=== PATIENT | male | born 1995 ===

== ENCOUNTER 2021-01-20 17:31 | Emergency (ER) | payer OTHER ==
[~2021-01-20] VITALS: Ht 172.7 cm; Wt 65.0 kg
[2021-01-20 19:28] LABS: BASOPHILS % (AUTO) 0 % (0-1); EOSINOPHILS % (AUTO) 0 % (1-7); LYMPHOCYTES % (AUTO) 11 % (22-44); MEAN CORPUSCULAR HEMOGLOBIN 32.4 pg (27.5-34.5); MEAN CORPUSCULAR HGB CONC 35.7 g/dL (33.2-36.2); MEAN PLATELET VOLUME 9.1 fL (7.4-10.4); MONOCYTES % (AUTO) 5 % (2-9); NEUTROPHILS % (AUTO) 83 % (42-75); PLATELET COUNT 194 x10^3/uL (130-400); RED BLOOD COUNT 5.46 x10^6/uL (4.38-5.82); RED CELL DISTRIBUTION WIDTH 12.1 % (9.4-14.8)
[2021-01-20 19:31] LABS: ALBUMIN 4.6 g/dL (3.4-5.0); CALCIUM 9.3 mg/dL (8.5-10.1)
[2021-01-20 19:35] LABS: ALANINE AMINOTRANSFERASE 23 U/L (12-78); ALKALINE PHOSPHATASE 62 U/L (45-117); BILIRUBIN,TOTAL 1.9 mg/dL (0.2-1.0); CREATININE 0.95 mg/dL (0.7-1.3); TOTAL PROTEIN 8.4 g/dL (6.4-8.2)
[2021-01-20 19:38] LABS: ANION GAP 7 mmol/L (5-15); CHLORIDE 104 mmol/L (98-107)
--- NOTE | 2021-01-20 20:15 | NUR ---
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
[2021-01-20] MEDS ORDERED: ONDANSETRON 2MG/ML, 2ML ONE ×2 (20:46→23:15)
[2021-01-20] MEDS ORDERED: MORPHINE SULFATE 4 MG/ML, 1ML ONE ×2 (20:46→23:15)
[2021-01-20] MEDS ORDERED: MORPHINE SULFATE 4 MG/ML, 1ML IVPush ONE ×2 (21:00→23:00)
[2021-01-20] MEDS ORDERED: ONDANSETRON 2MG/ML, 2ML IVPush ONE ×2 (21:00→23:00)
[2021-01-20] MEDS ORDERED: OMNIPAQUE 350 MG/ML, 100ML BOTTLE ONE (21:42)
[2021-01-20 22:42] LABS: MICROSCOPIC AUTO
[2021-01-20] MEDS ORDERED: PLEASE ENTER ALLERGIES MC SCH (23:00)
--- NOTE | 2021-01-20 23:20 | NUR ---
Pt given additional pain and nausea medications. Will be discharged with responsible ride home shortly.
--- NOTE | 2021-01-21 00:07 | NUR ---
Patient/Caregiver given discharge instructions and they have confirmed that they understand the instructions. Patient ambulatory with steady gait. NAD, all questions answered appropriately, denies additional needs at this time. No personal belongings left in room after discharge.
--- NOTE | 2021-01-21 00:07 | NUR ---
Pt alert, oriented, vitals stable. Pt safe for discharge. Pts girlfriend will be here in 20 minutes.
== END 2021-01-21 00:33 | disposition home or self-care (01) ==
LOC: ED 20:49
DX: K29.20 Alcoholic gastritis without bleeding (principal); F10.10 Alcohol abuse, uncomplicated; F12.10 Cannabis abuse, uncomplicated; F17.210 Nicotine dependence, cigarettes, uncomplicated; E27.49 Other adrenocortical insufficiency; R11.2 Nausea with vomiting, unspecified; R10.13 Epigastric pain; Z72.9 Problem related to lifestyle, unspecified; Y90.0 Blood alcohol level of less than 20 mg/100 ml
CPT/HCPCS: 36415; 72131; 74021; 74177; 80053; 81001; 83690; 85025; 87086; 96374; 96375; 96376; 99285; 99406; J2270; J2405; Q9967

== ENCOUNTER 2021-01-22 11:18 | Emergency (ER) | payer OTHER ==
[~2021-01-22] VITALS: Ht 177.8 cm; Wt 58.2 kg
[2021-01-22] MEDS ORDERED: METOCLOPRAMIDE 5 MG/ML, 2ML ONE (11:56)
[2021-01-22] MEDS ORDERED: PANTOPRAZOLE 40 MG IV ONE (11:56)
[2021-01-22] MEDS ORDERED: MORPHINE SULFATE 4 MG/ML, 1ML ONE (11:56)
[2021-01-22] MEDS ORDERED: DIPHENHYDRAMINE 50 MG/ML, 1ML ONE (11:56)
[2021-01-22] MEDS ORDERED: DIPHENHYDRAMINE 50 MG/ML, 1ML IVPush ONE (12:00)
[2021-01-22] MEDS ORDERED: MAALOX/HYOSCYAMINE/LIDOCAINE 45 ML BTL PO ONE (12:00)
[2021-01-22] MEDS ORDERED: MORPHINE SULFATE 4 MG/ML, 1ML IVPush PRN (12:00)
[2021-01-22] MEDS ORDERED: SODIUM CHLORIDE FLUSH 10ML SYR IVF ONE (12:00)
[2021-01-22] MEDS ORDERED: SUCRALFATE 1 GM/10 ML UDC PO ONE (12:00)
[2021-01-22] MEDS ORDERED: METOCLOPRAMIDE 5 MG/ML, 2ML IVPush ONE (12:00)
[2021-01-22] MEDS ORDERED: PANTOPRAZOLE 40 MG IV IVPush SCH (12:00)
[2021-01-22] MEDS ORDERED: SODIUM CHLORIDE 0.9% 1,000ML IVBOLUS ONE (12:00)
[2021-01-22 12:21] LABS: BASOPHILS % (AUTO) 0 % (0-1); EOSINOPHILS % (AUTO) 0 % (1-7); LYMPHOCYTES % (AUTO) 8 % (22-44); MEAN CORPUSCULAR HEMOGLOBIN 31.3 pg (27.5-34.5); MEAN PLATELET VOLUME 8.6 fL (7.4-10.4); MONOCYTES % (AUTO) 7 % (2-9); NEUTROPHILS % (AUTO) 85 % (42-75); PLATELET COUNT 217 x10^3/uL (130-400); RED BLOOD COUNT 5.58 x10^6/uL (4.38-5.82); RED CELL DISTRIBUTION WIDTH 11.8 % (9.4-14.8)
--- NOTE | 2021-01-22 12:29 | NUR ---
PT CAME IN [place] [facility] [place] WEDNESDAY. PT CAME INTO THE ER WEDNESDAY FOR SAME AND WAS TREATED AND SENT HOME WITH RX. PT RETURNS TODAY SAYING IT HAS GOTTEN WORSE. PT VERY WEAK - WHEELCHAIR IN. PT RESTING IN [facility]. MEDICATED PER AUG. GF BEDSIDE
--- NOTE | 2021-01-22 12:32 | NUR ---
PT RESTING IN [facility]. REPORTS FEELING MUCH BETTER
[2021-01-22 12:33] LABS: ALANINE AMINOTRANSFERASE 22 U/L (12-78); ALBUMIN 4.4 g/dL (3.4-5.0); ANION GAP 13 mmol/L (5-15); CALCIUM 9.5 mg/dL (8.5-10.1); CHLORIDE 93 mmol/L (98-107); CREATININE 1.24 mg/dL (0.7-1.3)
[2021-01-22 12:35] LABS: ALKALINE PHOSPHATASE 62 U/L (45-117); BILIRUBIN,TOTAL 1.9 mg/dL (0.2-1.0); TOTAL PROTEIN 8.3 g/dL (6.4-8.2)
[2021-01-22] MEDS ORDERED: MAALOX/HYOSCYAMINE/LIDOCAINE 45 ML BTL ONE (12:43)
[2021-01-22 13:09] VITALS: BP 149/98
== END 2021-01-22 13:36 | disposition home or self-care (01) ==
LOC: ED 11:21
DX: R10.13 Epigastric pain (principal); R55 Syncope and collapse; R11.2 Nausea with vomiting, unspecified; F17.200 Nicotine dependence, unspecified, uncomplicated
CPT/HCPCS: 36415; 80053; 83690; 85025; 96361; 96374; 96375; 99284; C9113; J1200; J2270; J2765; J7030